=== PATIENT | male | born 1930 | race Caucasian/White ===

== ENCOUNTER → 2016-04-27 | Outpatient (CLI) | payer MEDICARE | LOC: PCVCCLINIC 12:00 | PROVIDERS: ATTEND Internal Medicine Cardiovascular Disease | DX: I25.10 Atherosclerotic heart disease of native coronary artery without angina pectoris (principal); I10 Essential (primary) hypertension; E78.00 Pure hypercholesterolemia, unspecified; R60.9 Edema, unspecified; R42 Dizziness and giddiness | CPT/HCPCS: 93005; G0463 ==

== ENCOUNTER → 2016-11-23 | Outpatient (CLI) | payer MEDICARE | END | disposition home or self-care (01) | LOC: PCVCCLINIC 11:23 | PROVIDERS: ATTEND Internal Medicine Cardiovascular Disease | DX: I25.10 Atherosclerotic heart disease of native coronary artery without angina pectoris (principal); I10 Essential (primary) hypertension; E78.00 Pure hypercholesterolemia, unspecified; R94.31 Abnormal electrocardiogram [ECG] [EKG]; F17.210 Nicotine dependence, cigarettes, uncomplicated; Z79.82 Long term (current) use of aspirin; Z79.899 Other long term (current) drug therapy | CPT/HCPCS: 93005; G0463 ==

== ENCOUNTER → 2017-01-25 | Outpatient (CLI) | payer MEDICARE | END | disposition home or self-care (01) | LOC: PCVCCLINIC 13:19 | PROVIDERS: ATTEND Internal Medicine Cardiovascular Disease | DX: I25.10 Atherosclerotic heart disease of native coronary artery without angina pectoris (principal); I10 Essential (primary) hypertension; E78.00 Pure hypercholesterolemia, unspecified; K21.9 Gastro-esophageal reflux disease without esophagitis; I25.2 Old myocardial infarction; F17.200 Nicotine dependence, unspecified, uncomplicated; Z88.8 Allergy status to other drugs, medicaments and biological substances; Z79.82 Long term (current) use of aspirin; Z79.899 Other long term (current) drug therapy; Z95.1 Presence of aortocoronary bypass graft; Z95.5 Presence of coronary angioplasty implant and graft; Z96.612 Presence of left artificial shoulder joint | CPT/HCPCS: 93005; G0463 ==

== ENCOUNTER → 2017-05-25 | Outpatient (CLI) | payer MEDICARE | END | disposition home or self-care (01) | LOC: PCVCCLINIC 14:00 | DX: I25.10 Atherosclerotic heart disease of native coronary artery without angina pectoris (principal); R60.9 Edema, unspecified; E78.00 Pure hypercholesterolemia, unspecified; I10 Essential (primary) hypertension; F17.210 Nicotine dependence, cigarettes, uncomplicated; Z79.82 Long term (current) use of aspirin; Z79.899 Other long term (current) drug therapy | CPT/HCPCS: 93005; G0463 ==

== ENCOUNTER → 2017-11-23 | Outpatient (CLI) | payer MEDICARE ==
[~2017-11-23] MED LIST: REGADENOSON 0.4 MG/5 ML DISP.SYRIN. IV ONE
--- NOTE | 2017-11-23 12:54 | PCVCIMAG ---
APPROVED REPORT Imaging Protocol: Rest Tc-99m/Stress Tc-99m 1 day Study performed: 11/23/2017 10:09:03 Indication: CAD Patient Location: Out-Patient Stress Nurse: Alia Sparks RN, Esperanza Falcon RN IN Tech:Dayday Corbett ERMELINDATCB Ht: 5 ft 7 in Wt: 175 lbs BSA: 1.91 m2 HR: 63 bpm BP: 183/94 mmHg BMI: 27.40 Rhythm: SR, LVH, PVC's Medical History Medical History: Age, Hyperlipidemia, HTN, CAD, VA, Smoker Medications: ASA, Plavix, Isosorbide, Metoprolol, Crestor, Prilosec Allergies: Iodine, Brillinta, Zetia Previous Cardiac Procedures: CABG, PCI Pretest Chest Pain Characteristics: No chest pain Exercise History: Sedentary Physical Disabilities: Back, Knees Meds Held (24 hrs): Metoprolol, Isosorbide Resting Data Rest SPECT myocardial perfusion imaging was performed in supine position 45 minutes following the intravenous injection of 11 mCi of Tc-99m Sestamibi. Time of rest injection: 924 Date: 11/23/2017 Administration Route: IV Administration Site: Right Arm Pharmacologic Stress Pharmacologic stress test was performed by injecting Regadenoson 0.4 mg IV push over 10-15 seconds immediately followed by the intravenous injection of 36 mCi of Tc-99m Sestamibi. Time of stress injection: 1030 Date: 11/23/2017 Administration Route: IV Administration Site: Right Arm Gated Stress SPECT was performed 45 minutes after stress injection. The images were gated to evaluate regional wall motion and calculate left ventricular ejection fraction. Comments Prior 08/2015 This study reveals an incomplete inferior wall VA with moderate johana-infarct ischemia. This is consistent with his coronary anatomy. Normal left ventricular size and function with no regional wall motion abnormalities. Clinical findings: Nondiagnostic. EKG findings: Nonischemic. No relevant prior studies available currently for comparison. Stress Test Details Stress Test: Pharmacologic stress testing performed using 0.4 mg of regadenoson per 5 mL given IV over 10 seconds. Reason for pharmacologic stress test: back issues. HRMax Heart Rate (APMHR): 133 bpm Resting HR: 63 bpmTarget HR (85% APMHR): 113 bpm Max HR Achieved: 89 bpm % of APMHR: 66 Recovery HR: 78 bpm BP Resting BP: 183/94 mmHg Recovery BP: 191/80 mmHg ECG Resting ECG: Sinus Rhythm, LVH with repolarization changes Stress ECG: Sinus Rhythm, LVH with repolarization changes ST Change: Non-ischemic Arrhythmia: PAC's, PVC's Recovery ECG: Sinus Rhythm, LVH with repolarization changes Clinical Reason for Termination: Completed protocol Stress Symptoms: None Exercise duration: min 55 sec Symptoms resolved during recovery. Study Quality Study: Good Study Data Post stress, the left ventricular ejection was 54%.. SSS: 3 SRS: 3 SDS: 1 TID = 0.82. Perfusion There is a medium area of moderately reduced uptake in the basal and mid segment of the inferior wall which is seen on the stress images as well as the resting images. This area is hypokinetic and is most consistent with myocardial scar. 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 The LV systolic function is normal, with mild hypokinesis of the inferior wall.
== END | disposition home or self-care (01) ==
LOC: PCVCIMAG 13:39
PROVIDERS: ATTEND Internal Medicine Cardiovascular Disease
DX: I25.10 Atherosclerotic heart disease of native coronary artery without angina pectoris (principal); E78.5 Hyperlipidemia, unspecified; I10 Essential (primary) hypertension; E78.00 Pure hypercholesterolemia, unspecified; I73.9 Peripheral vascular disease, unspecified; F17.200 Nicotine dependence, unspecified, uncomplicated; R60.9 Edema, unspecified; Z95.1 Presence of aortocoronary bypass graft; Z79.82 Long term (current) use of aspirin; Z79.899 Other long term (current) drug therapy; Z88.8 Allergy status to other drugs, medicaments and biological substances
CPT/HCPCS: 78452; 93017; A9500; G0463; J2785

== ENCOUNTER → 2018-06-30 | Outpatient (CLI) | payer MEDICARE | END | disposition home or self-care (01) | LOC: PCVCCLINIC 14:22 | PROVIDERS: ATTEND Internal Medicine Cardiovascular Disease | DX: I25.10 Atherosclerotic heart disease of native coronary artery without angina pectoris (principal); R94.31 Abnormal electrocardiogram [ECG] [EKG]; I10 Essential (primary) hypertension; R60.9 Edema, unspecified; E78.00 Pure hypercholesterolemia, unspecified; K21.9 Gastro-esophageal reflux disease without esophagitis; F17.200 Nicotine dependence, unspecified, uncomplicated; Z79.82 Long term (current) use of aspirin; Z79.899 Other long term (current) drug therapy; Z91.041 Radiographic dye allergy status; Z88.8 Allergy status to other drugs, medicaments and biological substances | CPT/HCPCS: 93005; G0463 ==

== ENCOUNTER → 2019-01-05 | Outpatient (CLI) | payer MEDICARE ==
--- NOTE | 2019-01-05 10:58 | PCVCIMAG ---
APPROVED REPORT Study performed: 01/05/2019 09:37:20 EXAM: Comprehensive 2D, Doppler, and color-flow Echocardiogram Patient Location: Echo lab Status: routine BSA: 1.91 HR: 64 bpmBP: 130/70 mmHg Rhythm: NSR Other Information Study Quality: Adequate Risk Factors: Cardiac Risk Factors: HTN Indications CAD PVCs 2D Dimensions IVSd: 13.38 (7-11mm) LVDd: 40.01 mm PWd: 13.63 (7-11mm)Ascending Ao: 39.95 (22-36mm) LVDs: 31.52 (25-40mm) Left Atrium: 39.77 (27-40mm) Aortic Root: 37.41 mm LV Single Plane 4CH: 54.01 % LV Single Plane 2CH: 45.76 % Biplane EF: 49.1 % Volumes Left Atrial Volume (Systole) Single Plane 4CH: 71.66 mLSingle Plane 2CH: 74.59 mL LA ESV Index: 38.00 mL/m2 Aortic Valve AoV Peak Da.: 1.32 m/s AO Peak Gr.: 6.92 mmHgLVOT Max P.41 mmHg LVOT Max V: 1.05 m/s Mitral Valve E/A Ratio: 0.6 MV Decel. Time: 335.27 ms MV E Max Da.: 0.35 m/s MV A Da.: 0.60 m/s IVRT: 138.41 ms Pulmonary Valve PV Peak Da.: 0.77 m/sPV Peak Gr.: 2.36 mmHg Pulmonary Vein P Vein S: 0.24 m/sP Vein A: 0.28 m/s P Vein D: 0.37 m/sP Vein A Dur.: 131.5 msec P Vein S/D Ratio: 0.65 Tricuspid Valve TR Peak Da.: 2.91 m/s TR Peak Gr.: 33.86 mmHg TV Vmax: 0.49 m/s Left Ventricle The left ventricle is normal size. There is hypokinesis of the inferior base. Mild concentric left ventricular hypertrophy. Left ventricular systolic function is normal. The left ventricular ejection fraction is within the normal range. LVEF is 50-55%. Grade I - abnormal relaxation pattern. Right Ventricle The right ventricle is normal size. The right ventricular systolic function is normal. Atria Left atrium is mildly dilated. The right atrium size is normal. Aortic Valve Mild aortic valve sclerosis. No aortic regurgitation is present. There is no aortic valvular stenosis. Mitral Valve The mitral valve is normal in structure. Mild mitral regurgitation. No evidence of mitral valve stenosis. Tricuspid Valve The tricuspid valve is normal in structure. Mild tricuspid regurgitation with PAP of 41 mmHg. Pulmonic Valve The pulmonary valve is normal in structure. Mild pulmonic regurgitation. Great Vessels The aortic root is normal in size. 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 IVC is normal in size and collapses >50% with inspiration. Pericardium There is no pericardial effusion. There is no pleural effusion. <Conclusion> The left ventricle is normal size. Mild concentric left ventricular hypertrophy. Left ventricular systolic function is normal. Grade I - abnormal relaxation pattern. The right ventricle is normal size. Left atrium is mildly dilated. Mild aortic valve sclerosis. Mild mitral regurgitation. Mild tricuspid regurgitation with PAP of 41 mmHg.
== END | disposition home or self-care (01) ==
LOC: PCVCIMAG 09:48
PROVIDERS: ATTEND Internal Medicine Cardiovascular Disease
DX: I08.8 Other rheumatic multiple valve diseases (principal); I11.9 Hypertensive heart disease without heart failure; E78.00 Pure hypercholesterolemia, unspecified; Z91.041 Radiographic dye allergy status; Z88.3 Allergy status to other anti-infective agents
CPT/HCPCS: 93005; 93306; G0463

== ENCOUNTER → 2019-01-19 | Outpatient (CLI) | payer MEDICARE | END | disposition home or self-care (01) | LOC: PCVCCLINIC 12:13 | PROVIDERS: ATTEND Internal Medicine Cardiovascular Disease | DX: E78.00 Pure hypercholesterolemia, unspecified (principal); I25.10 Atherosclerotic heart disease of native coronary artery without angina pectoris; I10 Essential (primary) hypertension; Z88.8 Allergy status to other drugs, medicaments and biological substances | CPT/HCPCS: 36415; 80061 ==